=== PATIENT | male | born 1975 | race Caucasian/White ===

== ENCOUNTER 2020-12-10 17:16 | Outpatient (REF) | payer OTHER, SELFPAY | END 2020-12-10 17:17 | disposition home or self-care (01) | LOC: HO.LAB 17:16 | PROVIDERS: Visit Provider Internal Medicine | DX: Z20.822 Contact with and (suspected) exposure to COVID-19 (principal) | CPT/HCPCS: 36415; C9803; U0003 ==

== ENCOUNTER 2022-11-06 11:43 | Emergency (ER) | payer MEDICAID, SELFPAY ==
--- NOTE | ~2022-11-06 | XR_ITS ---
EXAMINATION: XR ANKLE, RIGHT XR FOOT, RIGHT CLINICAL INFORMATION: Pain COMPARISON: None TECHNIQUE: 3 views of the right foot. 2 additional views of the right ankle. FINDINGS: Right ankle: No fracture or dislocation. The ankle mortise is congruent. No ankle joint effusion. Scattered soft tissue calcification noted. No significant soft tissue swelling. Right foot: There is a comminuted fracture of the shaft of the fourth metatarsal. No significant angulation of the major fragments. Joint spaces are maintained. The fracture does not extend to the articulation. XR/XR ankle RT 2V IMPRESSION: 1. Comminuted fourth metatarsal shaft fracture. 2. No fracture or malalignment of the right ankle.
--- NOTE | ~2022-11-06 | XR_ITS ---
EXAMINATION: XR ANKLE, RIGHT XR FOOT, RIGHT CLINICAL INFORMATION: Pain COMPARISON: None TECHNIQUE: 3 views of the right foot. 2 additional views of the right ankle. FINDINGS: Right ankle: No fracture or dislocation. The ankle mortise is congruent. No ankle joint effusion. Scattered soft tissue calcification noted. No significant soft tissue swelling. Right foot: There is a comminuted fracture of the shaft of the fourth metatarsal. No significant angulation of the major fragments. Joint spaces are maintained. The fracture does not extend to the articulation. XR/XR foot RT 2V IMPRESSION: 1. Comminuted fourth metatarsal shaft fracture. 2. No fracture or malalignment of the right ankle.
[2022-11-06 12:14] VITALS: BP 134/77; PULSE 73; RESP 20; TEMP 36.6; O2SAT 98; BMI 23.1
--- NOTE | 2022-11-06 12:17 | ED.GENADULT ---
HPI - General Adult General Chief complaint: Extremity Problem Stated complaint: R leg pain inj Related Data Allergies Allergy/AdvReac Type Severity Reaction Status Date / Time No Known Allergies Allergy Unverified 08/02/20 18:32 Physical Exam ED Vital Signs: Vital Signs - 24 hr 11/06/22 12:14 Temperature 97.9 F Pulse Rate 73 Respiratory Rate 20 Blood Pressure 134/77 Pulse Oximetry 98 Oxygen Delivery Method Room Air BMI result Body Mass Index 23.1 Course Course Course Narrative: RME: patient presents to the ED for right foot pain after slipping and turning foot while running 5 days ago. patient states foot became purple and blue and than color and swelling resolved. patient states just foot pain. Patient has right metatarsal tenderness. no swelling/blue/black discloration.
--- NOTE | 2022-11-06 13:47 | ED_ITS ---
HPI - Extremity Injury (Lower) General Chief Complaint: Extremity Problem Stated Complaint: R leg pain inj Time Seen by Provider: 11/06/22 12:25 Source: patient Mode of arrival: ambulatory Limitations: no limitations History of Present Illness HPI Narrative: 47-year-old male presenting to the ED with complaints of right foot pain after he had a mechanical fall where he slipped and fell outside of his apartment [place] [employer] due to the floor being slippery and injured his right foot. Reports he has been taking Motrin Tylenol every 4 hours and it is providing mild to no symptomatic relief. Denies head injury loss of consciousness the prolonged down time or any other symptoms prior to the fall. Denies any other symptoms at the fall other than right foot pain/limping. Patient denies being on any blood thinners. Patient denies any other symptoms complaints concerns or injuries at this time. MD complaint: foot injury and fall Onset (ago): day(s) (5) Injury: Right: foot Type of Injury: other ( Twist injury) Place: home ( outside) Severity: moderate Relieving factors: nothing Exacerbating factors: weight bearing, movement and palpation Context: fall Associated symptoms: swelling and able to partially bear weight Other symptoms: none Treatments prior to arrival: cold therapy and NSAIDS (and tylenol) Related Data Previous Rx's Medication Instructions Recorded acetaminophen 500 mg tablet 1,000 mg PO QID PRN fever or pain 11/06/22 (Tylenol Extra Strength) #14 tabs ibuprofen 800 mg tablet 800 mg PO Q8H PRN pain #14 tabs 11/06/22 oxycodone 5 mg tablet 5 mg PO Q6H PRN pain #14 tabs 11/06/22 Allergies Allergy/AdvReac Type Severity Reaction Status Date / Time No Known Allergies Allergy Unverified 08/02/20 18:32 Review of Systems Review of Systems: Constitutional : No Weight loss, No Fever, No Chills, No Night Sweats, No Fatigue, No Malaise ENT/Mouth : No Hearing loss, No Ear Pain, No Nasal Congestion, No Sinus Pain, No Hoarseness, No sore throat, No Rhinorrhea, No Swallowing Difficulty Eyes: No Eye Pain, No Swelling, No Redness, No Foreign Body, No Discharge, No Vision Changes Cardiovascular : No Chest Pain, No SOB, No Dyspnea on Exertion, No Orthopnea, No Edema, No Palpitations Respiratory : No Cough, No Sputum, No Wheezing, No Smoke Exposure, No Dyspnea Gastrointestinal : No Nausea, No Vomiting, No Diarrhea, No Constipation, No abdominal Pain, No Hematochezia, No Melena Genitourinary : no irregular bleeding, No Dysuria, No Urinary Frequency, No Hematuria, No Urinary Incontinence, No Urgency, No Flank Pain, No Urinary Flow Changes, No Hesitancy Musculoskeletal : + joint pain/swelling, No Myalgias, No Joint Swelling Skin : No Skin Lesions, No rash Neuro : No Weakness, No Numbness, No Paresthesias, No Loss of Consciousness, No Dizziness, No Headache Psych : No Anxiety/Panic, No Depression, No SI/HI/AH/VH, No Social Issues, Heme/Lymph: No Bruising, No Bleeding,No Lymphadenopathy Endocrine : No Polyuria, No Polydipsia, No Temperature Intolerance Yes all other systems are reviewed and are negative [facility] Past Medical History Attestation statement: The following information was validated with the patient. Source: old records reviewed and nursing notes reviewed Social History Social History Advance Directives: No Advance Directives Information Provided: Yes Physical Exam Vital Signs: Vital Signs: Last Vital Signs Temp 97.9 F 11/06/22 12:14 Pulse 73 11/06/22 12:14 Resp 20 11/06/22 12:14 BP 134/77 11/06/22 12:14 Pulse Ox 98 11/06/22 12:14 O2 Del Method 11/06/22 12:14 BMI result Body Mass Index 23.1 vital signs have been reviewed as normal and appeared to be correct. Blood pressure normal Heart rate normal. Respiration rate normal. Temperature normal. Oxygen saturation normal. Appearance: Alert. Oriented X3. No acute distress. Head: Normal external exam. Normocephalic. Atraumatic. Eyes: PERRLA. EOMI. Conjunctiva and sclera normal. Eyelids normal. ENT: Pharynx normal. Uvula midline. Moist mucous membranes. Neck: Normal inspection. Neck supple. FROM. CVS: Normal heart rate and rhythm. Respiratory: No respiratory distress. Painless inspiration. Skin: Skin warm and dry. Normal skin color. Normal skin turgor. No rashes/lesions/lacerations noted. Extremities: patient moderate soft tissue swelling and ecchymosis and tenderness palpation to the right foot at the 3/4 metatarsals. No 5th metatarsal tenderness. No step-offs or deformities noted. Achilles tendon is intact. No obvious ligamentous or tendon injury noted. Has full range of angelo on of the right ankle joint no tenderness to the right ankle. Otherwise all other extremities exhibit normal range of motion nontender. There is no lower extremity edema or calf tenderness noted. Neuro: Oriented X 3. No motor deficit. No sensory deficit. Reflexes normal. Normal steady gait. No focal neuro deficits noted. Vascular: + radial pulses/+ 2 distal pedal pulses/+2 dorsalis pedis b/l. Normal cap refill. No cyanosis noted to upper extremity nails and lower extremity toes nails. Course Course Course Narrative: Right foot x-ray revealed FINDINGS: Right ankle: No fracture or dislocation. The ankle mortise is congruent. No ankle joint effusion. Scattered soft tissue calcification noted. No significant soft tissue swelling. Right foot: There is a comminuted fracture of the shaft of the fourth metatarsal. No significant angulation of the major fragments. Joint spaces are maintained. The fracture does not extend to the articulation. XR/XR foot RT 2V IMPRESSION: 1.? Comminuted fourth metatarsal shaft fracture. 2.? No fracture or malalignment of the right ankle. ? therefore at this time will place in an ortho shoe and crutches and treat symptomatic and instructed follow-up with orthopedics in the next few weeks and to return if any new or worsening symptoms. Patient understands agrees with this plan. Procedures Orthopedic Splinting/Casting Injury #1: Side: right Lower Extremity Injury Location: foot Lower Extremity Immobilizer: post-op shoe Other Orthopedic Equipment: crutches Discharge Plan Discharge Clinical Impression: Fracture of fourth metatarsal bone, Fall Patient Disposition: Home, Self-Care Instructions: Crutch Instructions (ED), Foot Fracture in Adults (ED) Prescriptions: New ibuprofen 800 mg tablet 800 mg PO Q8H PRN (Reason: pain) Qty: 14 0RF acetaminophen [Tylenol Extra Strength] 500 mg tablet 1,000 mg PO QID PRN (Reason: fever or pain) Qty: 14 0RF oxycodone 5 mg tablet 5 mg PO Q6H PRN (Reason: pain) Qty: 14 0RF Rx Instructions: Partial Fill upon patient request. [place]: [facility] [place] [facility] [place] Group[place] ( Call to make a follow-up appointment within next few weeks) [facility] [Primary Care Provider] - Print Language: [place]
[2022-11-06] MEDS: oxyCODONE HCl Immed Release 5 MG TABLET PO (14:09)
[2022-11-06] MEDS: Ibuprofen 800 MG TABLET PO (14:10)
== END 2022-11-06 14:13 | disposition home or self-care (01) ==
PROVIDERS: Emergency Provider Emergency Medicine Emergency Medical Services
DX: S92.341A Displaced fracture of fourth metatarsal bone, right foot, initial encounter for closed fracture (principal); X50.1XXA Overexertion from prolonged static or awkward postures, initial encounter; Y93.89 Activity, other specified; Y92.038 Other place in apartment as the place of occurrence of the external cause; Y99.9 Unspecified external cause status
CPT/HCPCS: 73600; 73620; 99283

== ENCOUNTER 2023-11-04 19:26 | Emergency (ER) | payer MEDICAID, SELFPAY ==
--- NOTE | ~2023-11-04 | XR_ITS ---
EXAMINATION:XR ankle LT min 3V, XR foot LT 2V CLINICAL INFORMATION: Reason for Exam running and heard crack. COMPARISON: None TECHNIQUE: Frontal lateral oblique left ankle, frontal and lateral left foot, total of 5 views. FINDINGS: Plate and multiple screws intact hardware distal fibula properly positioned. There is no fracture or dislocation. Ankle mortise is preserved. Tibial plafond and talar dome are intact. Medial and lateral malleoli are properly aligned. Subtalar joint is normal. There is no osteolytic or osteoblastic lesions. XR/XR ankle LT min 3V IMPRESSION: * No radiographic evidence of acute fracture. * Plate and multiple screws intact distal fibula.
--- NOTE | ~2023-11-04 | XR_ITS ---
EXAMINATION:XR ankle LT min 3V, XR foot LT 2V CLINICAL INFORMATION: Reason for Exam running and heard crack. COMPARISON: None TECHNIQUE: Frontal lateral oblique left ankle, frontal and lateral left foot, total of 5 views. FINDINGS: Plate and multiple screws intact hardware distal fibula properly positioned. There is no fracture or dislocation. Ankle mortise is preserved. Tibial plafond and talar dome are intact. Medial and lateral malleoli are properly aligned. Subtalar joint is normal. There is no osteolytic or osteoblastic lesions. XR/XR foot LT 2V IMPRESSION: * No radiographic evidence of acute fracture. * Plate and multiple screws intact distal fibula.
[2023-11-04 19:43] VITALS: BP 132/94; PULSE 82; RESP 18; TEMP 36.4; O2SAT 95; BMI 24.1
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
[2023-11-04 21:24] VITALS: BP 136/87; PULSE 79; RESP 14; O2SAT 98
== END 2023-11-04 21:59 | disposition home or self-care (01) ==
PROVIDERS: Emergency Provider Emergency Medicine
DX: S93.402A Sprain of unspecified ligament of left ankle, initial encounter (principal); M25.572 Pain in left ankle and joints of left foot; Y33.XXXA Other specified events, undetermined intent, initial encounter; Y93.9 Activity, unspecified; Y92.9 Unspecified place or not applicable; Y99.9 Unspecified external cause status
CPT/HCPCS: 73610; 73620; 99283